=== PATIENT | male | born 1960 | race Caucasian/White ===

== ENCOUNTER 2018-05-19 18:25 | Emergency (ER) | payer MEDICAID, MEDICARE ==
[~2018-05-19] VITALS: Ht 167.6 cm; Wt 70.0 kg
[~2018-05-19 18:25] MED LIST: ASPI-1159 PO; ATOR10TA69 PO; CLON0.1T PO; GABA-531 PO; INSU100I24 SQ; LISI-604 PO; LOT105 PO; METO-396 PO; METO5TAB69 PO; PARO-41 PO; PRAV80TA21 PO; SODI650T PO
[2018-05-19 20:09] LABS: EOSINOPHILS % 1.2 % (0.0-5.0); HEMATOCRIT. 39.6 % (42.0-52.0); LYMPHOCYTES % 19.6 % (20.0-50.0); MEAN CORPUSCULAR HEMOGLOBIN 30.3 pg (28.0-32.0); MEAN CORPUSCULAR VOLUME 92.7 fL (80.0-94.0); MEAN PLATELET VOLUME 8.6 fl (7.4-10.4); MONOCYTES % 10.8 % (2.0-8.0); NEUTROPHILS % 67.4 % (40.0-76.0); PLATELET 361 x1000/uL (130-400); RED BLOOD CELL COUNT 4.27 mill/uL (4.7-6.1); RED CELL DISTRIBUTION WIDTH 17.3 % (11.6-14.6)
[2018-05-19 20:11] LABS: PROTHROMBIN TIME 9.9 sec (9.1-11.1)
[2018-05-19 20:18] LABS: CHLORIDE 102 mEq/L (98-107)
[2018-05-19 21:28] LABS: CLARITY URINE CLEAR (CLEAR); COLOR URINE YELLOW (YELLOW); KETONES URINE NEGATIVE (NEGATIVE); LEUKOCYTE ESTERASE URINE NEGATIVE (NEGATIVE); NITRITE URINE NEGATIVE (NEGATIVE); OCCULT BLOOD URINE TRACE (NEGATIVE); PH URINE 8.5 (4.5-8.0); PROTEIN URINE 4+ (NEGATIVE); SPECIFIC GRAVITY URINE 1.029 (1.005-1.030); UROBILINOGEN URINE 0.2 E.U./dL (0.2-1.0)
[2018-05-19 23:21] VITALS: BP 186/94
== END 2018-05-19 23:25 | disposition home or self-care (01) ==
LOC: ER 18:25
DX: R10.13 Epigastric pain (principal); I12.0 Hypertensive chronic kidney disease with stage 5 chronic kidney disease or end stage renal disease; E11.22 Type 2 diabetes mellitus with diabetic chronic kidney disease; N18.6 End stage renal disease; N28.9 Disorder of kidney and ureter, unspecified; Z98.61 Coronary angioplasty status; Z87.891 Personal history of nicotine dependence; Z79.899 Other long term (current) drug therapy; Z99.2 Dependence on renal dialysis; Z79.4 Long term (current) use of insulin
CPT/HCPCS: 36415; 71045; 74176; 80053; 81003; 83605; 83690; 84484; 85025; 85610; 87040; 87086; 93005; 99285; Z7610

== ENCOUNTER 2018-07-02 14:05 | Emergency (ER) | payer MEDICARE, MEDICAID ==
[~2018-07-02] VITALS: Ht 157.5 cm; Wt 66.0 kg
[2018-07-02 14:13] VITALS: BP 114/71
== END 2018-07-02 21:20 | disposition home or self-care (01) ==
LOC: ER 14:05
DX: L97.319 Non-pressure chronic ulcer of right ankle with unspecified severity (principal); E11.22 Type 2 diabetes mellitus with diabetic chronic kidney disease; I12.0 Hypertensive chronic kidney disease with stage 5 chronic kidney disease or end stage renal disease; N18.6 End stage renal disease; Z99.2 Dependence on renal dialysis; Z79.4 Long term (current) use of insulin; Z79.82 Long term (current) use of aspirin
CPT/HCPCS: 99283

== ENCOUNTER 2019-08-29 15:41 | Inpatient (IN) | payer MEDICARE, MEDICAID ==
[~2019-08-29] VITALS: Ht 193 cm; Wt 69.9 kg
[~2019-08-29 15:41] MED LIST changes: +AMLO10TA4 PO; -ASPI-1159 PO; +CALC667C PO; -GABA-531 PO; -INSU100I24 SQ; -LOT105 PO; -METO-396 PO; -METO5TAB69 PO; +METO5TAB7 PO; -PARO-41 PO; -PRAV80TA21 PO; -SODI650T PO; +[UNRECOGNIZED DRUG - OTHER]
[2019-08-29] MEDS ORDERED: ACETAMINOPHEN 650MG SUPP PR STA (18:43)
[2019-08-29] MEDS ORDERED: SODIUM CHLORIDE 0.9% 1000ML BAG (SEPSIS BOLUS) IV ONE (18:45)
[2019-08-29] MEDS ORDERED: VANCOMYCIN 1 G PREMIX 200 ML IV ONE (18:45)
[2019-08-29] MEDS ORDERED: PIPERACILLIN/TAZ 3.375G PREMIX 50 ML IV ONE (18:45)
[2019-08-29 19:15] LABS: BASOPHILS % 0.5 % (0.0-2.0); EOSINOPHILS % 0.1 % (0.0-5.0); HEMATOCRIT. 30.7 % (42.0-52.0); HEMOGLOBIN. 10.2 g/dL (14.0-18.0); LYMPHOCYTES % 8.6 % (20.0-50.0); MEAN CORPUSCULAR HEMOGLOBIN 31.8 pg (28.0-32.0); MEAN CORPUSCULAR VOLUME 95.4 fL (80.0-94.0); MEAN PLATELET VOLUME 8.5 fl (7.4-10.4); MONOCYTES % 10.5 % (2.0-8.0); NEUTROPHILS % 80.3 % (40.0-76.0); PLATELET 248 x1000/uL (130-400); RED BLOOD CELL COUNT 3.22 mill/uL (4.7-6.1); RED CELL DISTRIBUTION WIDTH 14.8 % (11.6-14.6)
[2019-08-29 19:21] LABS: PROTHROMBIN TIME 10.4 sec (9.6-11.0)
[2019-08-29 19:22] LABS: CHLORIDE 99 mEq/L (98-107)
[2019-08-29 19:45] LABS: CLARITY URINE CLEAR (CLEAR); COLOR URINE YELLOW (YELLOW); KETONES URINE NEGATIVE (NEGATIVE); LEUKOCYTE ESTERASE URINE NEGATIVE (NEGATIVE); NITRITE URINE NEGATIVE (NEGATIVE); OCCULT BLOOD URINE NEGATIVE (NEGATIVE); PH URINE >=9.0 (4.5-8.0); PROTEIN URINE 4+ (NEGATIVE); SPECIFIC GRAVITY URINE 1.017 (1.005-1.030); UROBILINOGEN URINE 0.2 E.U./dL (0.2-1.0)
[2019-08-29] MEDS ORDERED: MORPHINE SULFATE 4 MG/ML CPJ (NOT FOR IM USE) IV ONE (19:45)
[2019-08-29] MEDS ORDERED: GUAIFENESIN 200MG/10ML SUGAR FREE UDC PO PRN (21:15)
[2019-08-29] MEDS ORDERED: DIPHENHYDRAMINE 50MG/ML VIAL IV PRN (21:15)
[2019-08-29] MEDS ORDERED: DOCUSATE SODIUM 100MG CAPSULE PO PRN (21:15)
[2019-08-29] MEDS ORDERED: MAGNESIUM/ALUMINUM HYDROXIDE/SIMETHICONE 30ML UDC PO PRN (21:15)
[2019-08-29] MEDS ORDERED: CLONIDINE 0.1MG TABLET PO PRN (21:15)
[2019-08-29] MEDS ORDERED: CEFTRIAXONE 1 G PREMIX 50 ML IV NR (22:35)
[2019-08-29] MEDS ORDERED: HYDROCODONE/ACETAMINOPHEN 5/325MG TABLET PO PRN (22:35)
[2019-08-29] MEDS ORDERED: AZITHROMYCIN 500 MG in DEXT 5% WATER 250 ML IV NR (22:36)
[2019-08-29] MEDS ORDERED: IBUPROFEN 600MG TABLET PO ONE (23:00)
[2019-08-29] MEDS: ONDANSETRON HCL 4MG/2ML INJ IV PRN (23:01)
[2019-08-30] VITALS (12 sets, daily range): BP systolic 127–165; BP diastolic 58–96
[2019-08-30] MEDS ORDERED: GABA300C PO (02:14)
[2019-08-30] MEDS ORDERED: LOSA100T32 PO (02:14)
[2019-08-30] MEDS ORDERED: HYDR100T26 PO (02:14)
[2019-08-30] MEDS ORDERED: ASPI-1497 PO (02:14)
[2019-08-30] MEDS ORDERED: DEXTROSE 50% WATER 50ML SYRINGE IV PRN (04:45)
[2019-08-30] MEDS: INSULIN LISPRO 100 UNITS/ML SUBCUT SCH ×4 (06:12→21:00)
[2019-08-30] MEDS: BLOOD SUGAR DIAGNOSTIC STRIP TEST SCH ×4 (06:12→21:00)
[2019-08-30 06:18] LABS: BASOPHILS % 0.6 % (0.0-2.0); EOSINOPHILS % 1.2 % (0.0-5.0); HEMATOCRIT. 28.3 % (42.0-52.0); HEMOGLOBIN. 9.6 g/dL (14.0-18.0); LYMPHOCYTES % 18.4 % (20.0-50.0); MEAN CORPUSCULAR HEMOGLOBIN 32.8 pg (28.0-32.0); MEAN CORPUSCULAR VOLUME 96.4 fL (80.0-94.0); MEAN PLATELET VOLUME 8.8 fl (7.4-10.4); NEUTROPHILS % 65.8 % (40.0-76.0); PLATELET 207 x1000/uL (130-400); RED BLOOD CELL COUNT 2.94 mill/uL (4.7-6.1); RED CELL DISTRIBUTION WIDTH 15.1 % (11.6-14.6)
[2019-08-30 07:43] LABS: CHLORIDE 105 mEq/L (98-107)
[2019-08-30] MEDS: ENOXAPARIN 30MG/0.3ML SYR SUBCUT SCH (09:03)
[2019-08-30] MEDS: AMLODIPINE 10MG TABLET PO SCH (09:03)
[2019-08-30] MEDS: LISINOPRIL 20MG TABLET PO SCH (10:15)
[2019-08-30] MEDS: ONDANSETRON HCL 4MG/2ML INJ IV PRN (12:46)
[2019-08-30] MEDS: ACETAMINOPHEN 325MG TABLET PO PRN ×2 (12:46→18:16)
[2019-08-30] MEDS ORDERED: IPRATROPIUM/ALBUTEROL 0.5-3(2.5)MG/3ML NEB HHN PRN (13:00)
[2019-08-30] MEDS: LOSARTAN POTASSIUM 100 MG TABLET PO SCH (13:12)
[2019-08-30] MEDS: CALCIUM ACETATE 667 MG TABLET PO SCH ×2 (13:13→17:05)
[2019-08-30] MEDS: CEFTRIAXONE 1 G PREMIX 50 ML IV SCH (13:13)
[2019-08-30] MEDS: AZITHROMYCIN 500 MG in DEXT 5% WATER 250 ML IV SCH (14:43)
[2019-08-30] MEDS ORDERED: CEFTRIAXONE 1 G PREMIX 50 ML IV SCH (20:00)
[2019-08-30] MEDS ORDERED: EPOETIN ALFA 4000UNITS/ML VIAL SUBCUT SCH (21:00)
[2019-08-30] MEDS ORDERED: AZITHROMYCIN 500 MG in DEXT 5% WATER 250 ML IV SCH (21:00)
[2019-08-30] MEDS: IPRATROPIUM/ALBUTEROL 0.5-3(2.5)MG/3ML NEB HHN SCH (21:30)
[2019-08-30] MEDS: GABAPENTIN 300MG CAPSULE PO SCH (22:01)
[2019-08-30] MEDS: ATORVASTATIN CALCIUM 10MG TABLET PO SCH (22:01)
[2019-08-30] MEDS: GUAIFENESIN 600MG ER TABLET PO SCH (22:01)
[2019-08-31] VITALS (12 sets, daily range): BP systolic 120–146; BP diastolic 62–78
[2019-08-31] MEDS: ACETAMINOPHEN 325MG TABLET PO PRN (00:19)
[2019-08-31] MEDS: IPRATROPIUM/ALBUTEROL 0.5-3(2.5)MG/3ML NEB HHN SCH ×4 (03:34→20:41)
[2019-08-31] MEDS: BLOOD SUGAR DIAGNOSTIC STRIP TEST SCH ×4 (06:34→21:16)
[2019-08-31] MEDS: INSULIN LISPRO 100 UNITS/ML SUBCUT SCH ×4 (06:34→21:16)
[2019-08-31 06:51] LABS: BASOPHILS % 0.6 % (0.0-2.0); EOSINOPHILS % 0.3 % (0.0-5.0); HEMATOCRIT. 29.4 % (42.0-52.0); HEMOGLOBIN. 9.5 g/dL (14.0-18.0); LYMPHOCYTES % 11.7 % (20.0-50.0); MEAN CORPUSCULAR HEMOGLOBIN 31.5 pg (28.0-32.0); MEAN CORPUSCULAR VOLUME 97.1 fL (80.0-94.0); MEAN PLATELET VOLUME 9.2 fl (7.4-10.4); MONOCYTES % 14.4 % (2.0-8.0); PLATELET 250 x1000/uL (130-400); RED BLOOD CELL COUNT 3.03 mill/uL (4.7-6.1); RED CELL DISTRIBUTION WIDTH 15.4 % (11.6-14.6)
[2019-08-31] MEDS: CALCIUM ACETATE 667 MG TABLET PO SCH ×3 (07:20→17:04)
[2019-08-31 07:21] LABS: PHOSPHORUS 4.8 mg/dL (2.5-4.9)
[2019-08-31] MEDS: GUAIFENESIN 600MG ER TABLET PO SCH ×2 (09:03→21:12)
[2019-08-31] MEDS: GABAPENTIN 300MG CAPSULE PO SCH ×2 (09:03→21:12)
[2019-08-31] MEDS: LOSARTAN POTASSIUM 100 MG TABLET PO SCH (09:03)
[2019-08-31] MEDS: ENOXAPARIN 30MG/0.3ML SYR SUBCUT SCH (09:03)
[2019-08-31] MEDS: LISINOPRIL 20MG TABLET PO SCH (09:04)
[2019-08-31] MEDS: AMLODIPINE 10MG TABLET PO SCH (09:04)
[2019-08-31] MEDS ORDERED: LACTULOSE 20G/30ML UDC PO NR (12:45)
[2019-08-31] MEDS ORDERED: MAGNESIUM HYDROXIDE 400MG/5ML 30ML UDC PO PRN (12:45)
[2019-08-31] MEDS: CEFTRIAXONE 1 G PREMIX 50 ML IV SCH (13:42)
[2019-08-31] MEDS: AZITHROMYCIN 500 MG in DEXT 5% WATER 250 ML IV SCH (14:25)
[2019-08-31] MEDS: DOCUSATE SODIUM 100MG CAPSULE PO SCH (17:04)
[2019-08-31] MEDS: ATORVASTATIN CALCIUM 10MG TABLET PO SCH (21:12)
[2019-09-01] VITALS (15 sets, daily range): BP systolic 114–150; BP diastolic 49–78
[2019-09-01] MEDS: IPRATROPIUM/ALBUTEROL 0.5-3(2.5)MG/3ML NEB HHN SCH ×4 (01:55→20:59)
[2019-09-01 06:05] LABS: EOSINOPHILS % 1.6 % (0.0-5.0); HEMATOCRIT. 25.8 % (42.0-52.0); HEMOGLOBIN. 8.6 g/dL (14.0-18.0); LYMPHOCYTES % 20.3 % (20.0-50.0); MEAN CORPUSCULAR HEMOGLOBIN 32.3 pg (28.0-32.0); MEAN CORPUSCULAR VOLUME 96.4 fL (80.0-94.0); MONOCYTES % 12.7 % (2.0-8.0); NEUTROPHILS % 64.4 % (40.0-76.0); PHOSPHORUS 5.9 mg/dL (2.5-4.9); PLATELET 246 x1000/uL (130-400); RED BLOOD CELL COUNT 2.68 mill/uL (4.7-6.1); RED CELL DISTRIBUTION WIDTH 15.1 % (11.6-14.6)
[2019-09-01] MEDS: BLOOD SUGAR DIAGNOSTIC STRIP TEST SCH ×4 (06:14→21:29)
[2019-09-01] MEDS: INSULIN LISPRO 100 UNITS/ML SUBCUT SCH ×4 (07:20→21:00)
[2019-09-01] MEDS: GABAPENTIN 300MG CAPSULE PO SCH ×2 (08:24→21:41)
[2019-09-01] MEDS: DOCUSATE SODIUM 100MG CAPSULE PO SCH ×2 (08:24→18:19)
[2019-09-01] MEDS: GUAIFENESIN 600MG ER TABLET PO SCH ×2 (08:25→21:41)
[2019-09-01] MEDS: LOSARTAN POTASSIUM 100 MG TABLET PO SCH (08:25)
[2019-09-01] MEDS: LISINOPRIL 20MG TABLET PO SCH (08:25)
[2019-09-01] MEDS: AMLODIPINE 10MG TABLET PO SCH (08:25)
[2019-09-01] MEDS: ENOXAPARIN 30MG/0.3ML SYR SUBCUT SCH (08:26)
[2019-09-01] MEDS: CALCIUM ACETATE 667 MG TABLET PO SCH ×3 (08:26→18:25)
[2019-09-01] MEDS: AZITHROMYCIN 500 MG in DEXT 5% WATER 250 ML IV SCH (14:35)
[2019-09-01] MEDS: CEFTRIAXONE 1 G PREMIX 50 ML IV SCH (14:35)
[2019-09-01] MEDS: ATORVASTATIN CALCIUM 10MG TABLET PO SCH (21:41)
[2019-09-02] VITALS (10 sets, daily range): BP systolic 103–149; BP diastolic 56–85
[2019-09-02] MEDS: IPRATROPIUM/ALBUTEROL 0.5-3(2.5)MG/3ML NEB HHN SCH ×3 (02:10→14:14)
[2019-09-02] MEDS: BLOOD SUGAR DIAGNOSTIC STRIP TEST SCH (07:00)
[2019-09-02] MEDS: INSULIN LISPRO 100 UNITS/ML SUBCUT SCH (07:00)
[2019-09-02 07:06] LABS: BASOPHILS % 0.8 % (0.0-2.0); EOSINOPHILS % 4.7 % (0.0-5.0); HEMOGLOBIN. 9.2 g/dL (14.0-18.0); LYMPHOCYTES % 23.9 % (20.0-50.0); MEAN CORPUSCULAR HEMOGLOBIN 32.6 pg (28.0-32.0); MEAN CORPUSCULAR VOLUME 96.2 fL (80.0-94.0); MONOCYTES % 12.2 % (2.0-8.0); NEUTROPHILS % 58.4 % (40.0-76.0); PLATELET 298 x1000/uL (130-400); RED CELL DISTRIBUTION WIDTH 15.1 % (11.6-14.6)
[2019-09-02 07:46] LABS: PHOSPHORUS 6.4 mg/dL (2.5-4.9)
[2019-09-02] MEDS: DOCUSATE SODIUM 100MG CAPSULE PO SCH ×2 (08:05→17:36)
[2019-09-02] MEDS: ENOXAPARIN 30MG/0.3ML SYR SUBCUT SCH (08:05)
[2019-09-02] MEDS: LOSARTAN POTASSIUM 100 MG TABLET PO SCH (08:05)
[2019-09-02] MEDS: GUAIFENESIN 600MG ER TABLET PO SCH (08:05)
[2019-09-02] MEDS: GABAPENTIN 300MG CAPSULE PO SCH (08:06)
[2019-09-02] MEDS: LISINOPRIL 20MG TABLET PO SCH (08:06)
[2019-09-02] MEDS: CALCIUM ACETATE 667 MG TABLET PO SCH ×3 (08:07→17:37)
[2019-09-02] MEDS ORDERED: CARVEDILOL 3.125 MG TABLET PO SCH (09:15)
[2019-09-02] MEDS: AMLODIPINE 10MG TABLET PO SCH (12:02)
[2019-09-02] MEDS ORDERED: DEXTROSE 50% WATER 50ML SYRINGE IV PRN (13:30)
[2019-09-02] MEDS: CEFTRIAXONE 1 G PREMIX 50 ML IV SCH (13:39)
[2019-09-02] MEDS: AZITHROMYCIN 500 MG in DEXT 5% WATER 250 ML IV SCH (14:45)
[2019-09-02] MEDS ORDERED: BLOOD SUGAR DIAGNOSTIC STRIP TEST SCH (16:50)
[2019-09-02] MEDS ORDERED: INSULIN LISPRO 100 UNITS/ML SUBCUT SCH (17:20)
[2019-09-02] MEDS ORDERED: EPOETIN ALFA 10000UNITS/ML VIAL SUBCUT SCH (21:00)
[2019-09-03] MEDS ORDERED: AZITHROMYCIN 500 MG TABLET PO SCH (09:00)
== END 2019-09-02 19:23 | disposition home or self-care (01) | DRG 871 ==
LOC: ER 15:48 → 3WST 20:01 → EDBEDREQ 20:03 → EDBEDREQTM 20:03 → ENRESERV 08-30 00:47
PROVIDERS: ADMIT Hospitalist; ATTEND Hospitalist
PROC: 5A1D70Z Performance of Urinary Filtration, Intermittent, Less than 6 Hours Per Day (ICD-10-PCS; principal; 2019-08-30)
DX: A41.9 Sepsis, unspecified organism (principal); J18.9 Pneumonia, unspecified organism; J96.00 Acute respiratory failure, unspecified whether with hypoxia or hypercapnia; N18.6 End stage renal disease; I13.2 Hypertensive heart and chronic kidney disease with heart failure and with stage 5 chronic kidney disease, or end stage renal disease; N39.0 Urinary tract infection, site not specified; Z99.2 Dependence on renal dialysis; B96.89 Other specified bacterial agents as the cause of diseases classified elsewhere; D63.1 Anemia in chronic kidney disease; E11.319 Type 2 diabetes mellitus with unspecified diabetic retinopathy without macular edema; E11.22 Type 2 diabetes mellitus with diabetic chronic kidney disease; E11.51 Type 2 diabetes mellitus with diabetic peripheral angiopathy without gangrene; E78.5 Hyperlipidemia, unspecified; F41.9 Anxiety disorder, unspecified; F32.9 Major depressive disorder, single episode, unspecified; E83.39 Other disorders of phosphorus metabolism; E11.40 Type 2 diabetes mellitus with diabetic neuropathy, unspecified; E11.69 Type 2 diabetes mellitus with other specified complication; I50.9 Heart failure, unspecified; Z95.5 Presence of coronary angioplasty implant and graft; Z83.3 Family history of diabetes mellitus; Z89.431 Acquired absence of right foot
CPT/HCPCS: 36415; 71045; 80048; 80053; 81003; 82962; 83605; 83735; 84100; 84145; 84484; 85025; 87077; 87186; 87804; 93005; 93970; 94640; 96365; 96367; 96375; 97162; 99291; C1893; J0456; J0696; J0885; J1650; J1815; J2270; J2405; J2543; J3370; J7030; J7060; J7620

== ENCOUNTER 2020-05-02 05:26 | Inpatient (IN) | payer MEDICARE, MEDICAID ==
[~2020-05-02] VITALS: Ht 162.6 cm; Wt 71.7 kg
[~2020-05-02 05:26] MED LIST changes: +ASPI-1497 PO; +GABA300C PO; +HYDR100T26 PO; +LOSA100T32 PO
[2020-05-02 07:29] LABS: EOSINOPHILS % 0.4 % (0.0-5.0); HEMATOCRIT. 33.7 % (42.0-52.0); HEMOGLOBIN. 11.2 g/dL (14.0-18.0); LYMPHOCYTES % 11.5 % (20.0-50.0); MEAN CORPUSCULAR HEMOGLOBIN 32.2 pg (28.0-32.0); MEAN CORPUSCULAR VOLUME 96.4 fL (80.0-94.0); MEAN PLATELET VOLUME 8.7 fl (7.4-10.4); MONOCYTES % 6.3 % (2.0-8.0); NEUTROPHILS % 80.8 % (40.0-76.0); PLATELET 314 x1000/uL (130-400); RED BLOOD CELL COUNT 3.49 mill/uL (4.7-6.1); RED CELL DISTRIBUTION WIDTH 15.3 % (11.6-14.6)
[2020-05-02 07:38] LABS: PROTHROMBIN TIME 10.1 sec (9.6-11.0)
[2020-05-02 07:42] LABS: CHLORIDE 96 mEq/L (98-107)
[2020-05-02] MEDS ORDERED: ASPIRIN 81MG EC TABLET PO SCH (08:15)
[2020-05-02] MEDS: AMLODIPINE 5MG TABLET PO SCH ×2 (09:00→20:59)
[2020-05-02] MEDS ORDERED: ONDANSETRON HCL 4MG/2ML INJ IV PRN (09:45)
[2020-05-02] MEDS ORDERED: DEXTROSE 50% WATER 50ML SYRINGE IV PRN (09:45)
[2020-05-02] MEDS: CLONIDINE 0.1MG TABLET PO SCH ×3 (11:14→20:59)
[2020-05-02] MEDS: BLOOD SUGAR DIAGNOSTIC STRIP TEST SCH ×3 (12:12→20:50)
[2020-05-02 13:47] VITALS: BP 163/73
[2020-05-02] MEDS: INSULIN LISPRO 100 UNITS/ML SUBCUT SCH ×3 (13:56→20:50)
[2020-05-02 15:03] VITALS: BP 163/75
[2020-05-02 15:17] VITALS: BP 147/72
[2020-05-02] MEDS ORDERED: PROM12.513 MT (16:46)
[2020-05-02 20:53] VITALS: BP 143/69
[2020-05-02] MEDS ORDERED: ATORVASTATIN CALCIUM 10MG TABLET PO SCH (21:00)
[2020-05-02] MEDS: ACETAMINOPHEN 325MG TABLET PO PRN (21:39)
[2020-05-03] VITALS: BP 150/85
[2020-05-03 04:00] VITALS: BP 118/64
[2020-05-03] MEDS: INSULIN LISPRO 100 UNITS/ML SUBCUT SCH ×2 (06:05→11:35)
[2020-05-03] MEDS: BLOOD SUGAR DIAGNOSTIC STRIP TEST SCH ×2 (06:05→11:33)
[2020-05-03 06:12] LABS: PHOSPHORUS 3.8 mg/dL (2.5-4.9)
[2020-05-03] MEDS: CLONIDINE 0.1MG TABLET PO SCH (06:12)
[2020-05-03 06:25] LABS: BASOPHILS % 1.2 % (0.0-2.0); EOSINOPHILS % 6.3 % (0.0-5.0); HEMATOCRIT. 30.6 % (42.0-52.0); HEMOGLOBIN. 10.2 g/dL (14.0-18.0); LYMPHOCYTES % 19.1 % (20.0-50.0); MEAN CORPUSCULAR VOLUME 95.9 fL (80.0-94.0); MONOCYTES % 8.6 % (2.0-8.0); NEUTROPHILS % 64.8 % (40.0-76.0); PLATELET 293 x1000/uL (130-400); RED BLOOD CELL COUNT 3.19 mill/uL (4.7-6.1)
[2020-05-03 08:00] VITALS: BP 149/56
[2020-05-03] MEDS: AMLODIPINE 5MG TABLET PO SCH (08:51)
[2020-05-03] MEDS ORDERED: ASPIRIN 81MG EC TABLET PO SCH (09:00)
[2020-05-03] MEDS: ACETAMINOPHEN 325MG TABLET PO PRN (11:41)
[2020-05-03 12:00] VITALS: BP 154/59
[2020-05-03 12:25] VITALS: BP 154/59
== END 2020-05-03 13:40 | disposition home or self-care (01) | DRG 637 ==
LOC: ER 05:30 → 8WST 08:01 → EDBEDREQ 08:05 → ENRESERV 11:10
PROVIDERS: ADMIT Internal Medicine; ATTEND Internal Medicine
PROC: 5A1D70Z Performance of Urinary Filtration, Intermittent, Less than 6 Hours Per Day (ICD-10-PCS; principal; 2020-05-02)
DX: E11.649 Type 2 diabetes mellitus with hypoglycemia without coma (principal); G93.41 Metabolic encephalopathy; E87.1 Hypo-osmolality and hyponatremia; I13.2 Hypertensive heart and chronic kidney disease with heart failure and with stage 5 chronic kidney disease, or end stage renal disease; I43 Cardiomyopathy in diseases classified elsewhere; D63.8 Anemia in other chronic diseases classified elsewhere; E11.22 Type 2 diabetes mellitus with diabetic chronic kidney disease; E11.319 Type 2 diabetes mellitus with unspecified diabetic retinopathy without macular edema; E11.42 Type 2 diabetes mellitus with diabetic polyneuropathy; E11.51 Type 2 diabetes mellitus with diabetic peripheral angiopathy without gangrene; E78.5 Hyperlipidemia, unspecified; E83.39 Other disorders of phosphorus metabolism; E87.8 Other disorders of electrolyte and fluid balance, not elsewhere classified; I50.9 Heart failure, unspecified; N18.6 End stage renal disease; Z79.4 Long term (current) use of insulin; Z82.49 Family history of ischemic heart disease and other diseases of the circulatory system; Z83.3 Family history of diabetes mellitus; Z87.01 Personal history of pneumonia (recurrent); Z99.2 Dependence on renal dialysis; Z79.82 Long term (current) use of aspirin; Z79.899 Other long term (current) drug therapy
CPT/HCPCS: 36415; 71045; 80048; 80053; 82962; 83036; 83605; 83735; 84100; 84145; 84484; 85025; 93005; 93306; 99285; J1815

== ENCOUNTER 2020-08-02 11:00 | Emergency (ER) | payer MEDICARE, MEDICAID ==
[~2020-08-02] VITALS: Ht 162.6 cm; Wt 68.0 kg
[~2020-08-02 11:00] MED LIST changes: +PROM12.513 MT
[2020-08-02] MEDS ORDERED: ACETAMINOPHEN 325MG TABLET PO STA (11:28)
[2020-08-02 12:12] LABS: BASOPHILS % 0.7 % (0.0-2.0); EOSINOPHILS % 1.5 % (0.0-5.0); HEMATOCRIT. 30.7 % (42.0-52.0); HEMOGLOBIN. 10.3 g/dL (14.0-18.0); LYMPHOCYTES % 10.5 % (20.0-50.0); MEAN CORPUSCULAR HEMOGLOBIN 31.7 pg (28.0-32.0); MEAN CORPUSCULAR VOLUME 94.8 fL (80.0-94.0); MEAN PLATELET VOLUME 8.4 fl (7.4-10.4); MONOCYTES % 12.2 % (2.0-8.0); NEUTROPHILS % 75.1 % (40.0-76.0); PLATELET 169 x1000/uL (130-400); RED BLOOD CELL COUNT 3.24 mill/uL (4.7-6.1); RED CELL DISTRIBUTION WIDTH 15.3 % (11.6-14.6)
[2020-08-02 12:13] LABS: CHLORIDE 98 mEq/L (98-107)
[2020-08-02 14:55] VITALS: BP 112/65
== END 2020-08-02 15:04 | disposition home or self-care (01) ==
LOC: ER 11:00
DX: U07.1 COVID-19 (principal); I12.0 Hypertensive chronic kidney disease with stage 5 chronic kidney disease or end stage renal disease; E11.22 Type 2 diabetes mellitus with diabetic chronic kidney disease; N18.6 End stage renal disease; Z99.2 Dependence on renal dialysis; I25.10 Atherosclerotic heart disease of native coronary artery without angina pectoris; Z89.431 Acquired absence of right foot; Z79.4 Long term (current) use of insulin; Z79.899 Other long term (current) drug therapy; Z98.890 Other specified postprocedural states
CPT/HCPCS: 36415; 71045; 80053; 85025; 93005; 99285; C9803; U0003

== ENCOUNTER 2021-11-10 06:38 | Inpatient (IN) | payer MEDICARE, MEDICAID ==
[2021-11-10] VITALS (11 sets, daily range): BP systolic 132–157; BP diastolic 62–83
[~2021-11-10] VITALS: Ht 165.1 cm; Wt 71.7 kg
[~2021-11-10 06:38] MED LIST changes: -LISI-604 PO; +LISI20TA31 PO
[2021-11-10] MEDS ORDERED: METO-396 PO (08:00)
[2021-11-10] MEDS ORDERED: TOPXL5 PO (08:00)
[2021-11-10] MEDS ORDERED: FURO80TA3 PO (08:00)
[2021-11-10] MEDS ORDERED: IODIXANOL 320MG/ML 100 ML BOTTLE IV ONE (08:33)
[2021-11-10] MEDS ORDERED: LIDOCAINE HCL 1% 10 MG/ML 10ML VIAL ONE (08:33)
[2021-11-10] MEDS ORDERED: HEPARIN SODIUM 1,000 UNIT/1ML VIAL IV ONE (08:42)
[2021-11-10] MEDS ORDERED: FENTANYL CITRATE/PF 50MCG/ML 2ML VIAL ONE (09:16)
[2021-11-10] MEDS ORDERED: MIDAZOLAM HCL 2 MG/2 ML VIAL ONE (09:16)
[2021-11-10] MEDS ORDERED: IOHEXOL-300 100 ML BOTTLE ONE (09:53)
[2021-11-10] MEDS ORDERED: ASPIRIN 325MG TABLET ONE (11:14)
[2021-11-10] MEDS ORDERED: ONDANSETRON HCL 4MG/2ML INJ IV PRN (11:45)
[2021-11-10] MEDS ORDERED: ATROPINE SULFATE 1MG/10ML SYR IV PRN (11:45)
[2021-11-10] MEDS ORDERED: ACETAMINOPHEN 325MG TABLET PO PRN (11:45)
[2021-11-10] MEDS ORDERED: DEXTROSE 50% WATER 50ML SYRINGE IV PRN (12:30)
[2021-11-10] MEDS: FUROSEMIDE 40MG TABLET PO SCH (15:09)
[2021-11-10] MEDS: AMLODIPINE 2.5MG TABLET PO SCH (15:09)
[2021-11-10] MEDS: INSULIN LISPRO 100 UNITS/ML SUBCUT SCH ×2 (16:35→20:25)
[2021-11-10] MEDS: BLOOD SUGAR DIAGNOSTIC STRIP TEST SCH ×2 (16:35→20:18)
[2021-11-10] MEDS: METOPROLOL TARTRATE 25MG TABLET PO SCH (20:18)
[2021-11-11] VITALS (10 sets, daily range): BP systolic 141–166; BP diastolic 66–81
[2021-11-11] MEDS: BLOOD SUGAR DIAGNOSTIC STRIP TEST SCH ×3 (06:28→16:50)
[2021-11-11 06:54] LABS: BASOPHILS % 0.8 % (0.0-2.0); EOSINOPHILS % 5.3 % (0.0-5.0); HEMATOCRIT. 24.4 % (42.0-52.0); HEMOGLOBIN. 8.3 g/dL (14.0-18.0); LYMPHOCYTES % 15.9 % (20.0-50.0); MEAN CORPUSCULAR HEMOGLOBIN 33.2 pg (28.0-32.0); MEAN CORPUSCULAR VOLUME 97.6 fL (80.0-94.0); MEAN PLATELET VOLUME 8.4 fl (7.4-10.4); MONOCYTES % 8.7 % (2.0-8.0); NEUTROPHILS % 69.3 % (40.0-76.0); PLATELET 306 x1000/uL (130-400)
[2021-11-11] MEDS: INSULIN LISPRO 100 UNITS/ML SUBCUT SCH ×3 (07:20→16:50)
[2021-11-11] MEDS ORDERED: ASPIRIN 325MG TABLET PO SCH (09:00)
[2021-11-11] MEDS: FUROSEMIDE 40MG TABLET PO SCH (09:02)
[2021-11-11] MEDS: AMLODIPINE 2.5MG TABLET PO SCH (09:04)
[2021-11-11] MEDS: METOPROLOL TARTRATE 25MG TABLET PO SCH (09:04)
[2021-11-11] MEDS ORDERED: IPRATROPIUM/ALBUTEROL 0.5-3(2.5)MG/3ML NEB HHN NR (09:15)
[2021-11-11] MEDS ORDERED: FOLIC ACID/VITAMIN B COMP W-C TABLET PO SCH (10:00)
[2021-11-11] MEDS ORDERED: LOSARTAN POTASSIUM 100 MG TABLET PO SCH (10:00)
[2021-11-11] MEDS: CALCIUM ACETATE 667MG CAPSULE PO SCH ×2 (13:09→17:40)
[2021-11-11] MEDS ORDERED: EPOETIN ALFA-EPBX 4,000 UNIT/ML VIAL SUBCUT SCH (21:00)
[2021-11-12] MEDS ORDERED: AMLODIPINE 10MG TABLET PO SCH (09:00)
[2021-11-12] MEDS ORDERED: FUROSEMIDE 40MG TABLET PO SCH (09:00)
== END 2021-11-11 16:00 | disposition home or self-care (01) | DRG 252 ==
LOC: CCL 06:38 → 3WST 06:39
PROVIDERS: ADMIT Specialist; ATTEND Specialist
PROC: 047N3ZZ Dilation of Left Popliteal Artery, Percutaneous Approach (ICD-10-PCS; principal; 2021-11-10)
PROC: 047L3ZZ Dilation of Left Femoral Artery, Percutaneous Approach (ICD-10-PCS; 2021-11-10)
PROC: 047Q3ZZ Dilation of Left Anterior Tibial Artery, Percutaneous Approach (ICD-10-PCS; 2021-11-10)
PROC: B41GYZZ Fluoroscopy of Left Lower Extremity Arteries using Other Contrast (ICD-10-PCS; 2021-11-10)
PROC: B41FYZZ Fluoroscopy of Right Lower Extremity Arteries using Other Contrast (ICD-10-PCS; 2021-11-10)
PROC: 5A1D70Z Performance of Urinary Filtration, Intermittent, Less than 6 Hours Per Day (ICD-10-PCS; 2021-11-11)
DX: I70.203 Unspecified atherosclerosis of native arteries of extremities, bilateral legs (principal); N18.6 End stage renal disease; E87.1 Hypo-osmolality and hyponatremia; I13.2 Hypertensive heart and chronic kidney disease with heart failure and with stage 5 chronic kidney disease, or end stage renal disease; R71.0 Precipitous drop in hematocrit; E11.51 Type 2 diabetes mellitus with diabetic peripheral angiopathy without gangrene; E11.621 Type 2 diabetes mellitus with foot ulcer; I25.10 Atherosclerotic heart disease of native coronary artery without angina pectoris; E78.5 Hyperlipidemia, unspecified; I50.9 Heart failure, unspecified; I35.0 Nonrheumatic aortic (valve) stenosis; E11.42 Type 2 diabetes mellitus with diabetic polyneuropathy; Z20.822 Contact with and (suspected) exposure to COVID-19; E11.22 Type 2 diabetes mellitus with diabetic chronic kidney disease; E11.319 Type 2 diabetes mellitus with unspecified diabetic retinopathy without macular edema; L97.529 Non-pressure chronic ulcer of other part of left foot with unspecified severity; Z95.5 Presence of coronary angioplasty implant and graft; Z79.899 Other long term (current) drug therapy; Z79.82 Long term (current) use of aspirin; Z99.2 Dependence on renal dialysis; Z82.49 Family history of ischemic heart disease and other diseases of the circulatory system; Z86.16 Personal history of COVID-19; Z87.01 Personal history of pneumonia (recurrent)
CPT/HCPCS: 36415; 37224; 37228; 71045; 75710; 80048; 82962; 83036; 83735; 85025; 85347; 87426; 94640; C1725; C1760; C1769; C1887; C1893; C1894; J0885; J1644; J2250; J3010; J3490; Q9967